=== PATIENT | female | born 1980 | race Caucasian/White ===

== ENCOUNTER 2021-12-02 02:11 | Emergency (ER) | payer MEDICAID ==
[~2021-12-02] VITALS: Ht 167.6 cm; Wt 111.1 kg
[2021-12-02] MEDS ORDERED: ALDACTONE25 MG PO (02:35)
[2021-12-02] MEDS ORDERED: ZESTRIL20 MG PO (02:35)
[2021-12-02] MEDS ORDERED: CARVEDILOL12.5 MG PO (02:35)
[2021-12-02] MEDS ORDERED: FUROSEMIDE40 MG PO (02:35)
[2021-12-02] MEDS ORDERED: PROMETHAZINE HC25 M1 PO (02:36)
[2021-12-02] MEDS ORDERED: XANAX0.5 MG PO (02:36)
[2021-12-02] MEDS ORDERED: ASPIRIN81 MG PO (02:36)
[2021-12-02] MEDS ORDERED: LEVOTHYROXINE25 MC1 PO (02:36)
[2021-12-02] MEDS ORDERED: NITROSTAT0.4 MG SL (02:36)
[2021-12-02] MEDS ORDERED: LASIX20 MG PO (03:19)
[2021-12-02] MEDS ORDERED: CYCLOBENZAPRINE10 MG PO (03:19)
--- NOTE | 2021-12-02 13:12 | EKG ---
[facility] [address] [facility] [place], [place] [address] Signed Atrial-sensed ventricular-paced rhythm with prolonged AV conduction Abnormal ECG No previous ECGs available Confirmed by CARMEN ARMSTRONG MD ([id number]) on 12/02/2021 1:12:39 PM Electronically Signed By: CARMEN ARMSTRONG MD 12/02/21 1312 PATIENT NAME: CECIL REGAN Electrocardiogram DATE OF : 80 PHYSICIAN: CARMEN ARMSTRONG MD REPORT #: [id number] REPORT IS CONFIDENTIAL AND NOT TO BE RELEASED WITHOUT AUTHORIZATION
== END 2021-12-02 04:15 | disposition home or self-care (01) ==
LOC: ED 02:11
DX: I11.0 Hypertensive heart disease with heart failure (principal); I50.9 Heart failure, unspecified; E03.9 Hypothyroidism, unspecified; Z20.822 Contact with and (suspected) exposure to COVID-19; Z79.82 Long term (current) use of aspirin; Z88.1 Allergy status to other antibiotic agents; Z88.5 Allergy status to narcotic agent; Z88.0 Allergy status to penicillin; Z88.8 Allergy status to other drugs, medicaments and biological substances
CPT/HCPCS: 36415; 71045; 80048; 83880; 84484; 85025; 87502; 93005; 93010; 96374; 96375; 99285-25; C9803; J1885; J1940; J2270; U0003